=== PATIENT | male | born 1975 | race African-American/Black ===

== ENCOUNTER 2020-12-16 18:08 | Observation (INO) ==
[2020-12-16 18:23] VITALS: BMI 35.4
--- NOTE | 2020-12-16 19:02 | DR.DIZZY ---
HPI Time seen Time Seen by Provider: 12/16/20 19:01 PCP Primary Care Physician: DESTINY WHITNEY HPI Comment HPI Comment: PATIENT WITH A HISTORY OF TYPE 2 DIABETES FOR 1 YEAR, COMPLAINS OF ELEVATED GLUCOSE 500 TODAY ASSOCIATED WITH DIZZINESS, POLYURIA AND POLYDIPSIA. DENIES DYSPNEA, CHEST PAIN, NAUSEA, EMESIS. PATIENT IS UNAWARE OF THE METFORMIN DOSE HE TAKES. DENIES NAUSEA, VOMITING OR DIARRHEA. Complaint Chief Complaint Doctor Comments: ELEVATED GLUCOSE, DIZZINESS Chief Complaint:: PT REPORT GLUCOSE AT HOME > 500'S AND FEELING DIZZY AND WEAK ",BR Self Treatment fo Chief Complaint: PT WENT TO [facility] ON 12/11/20 AND GLUCOSE WAS 500'S STAFF GOT GLUCOSE DOWN TO 300'S PT HAS AN APPT WITH PCP NEXT WEEK,,BR COVID-19 Coronavirus risk:travel/contact w/high risk person: No Has patient experienced Coronavirus symptoms: No Source History Provided: Patient Mode of Arrival Mode of Arrival: Ambulatory Timing Onset of Chief Complaint: 12/10/20 Came on: Gradually Onset of Symptoms Start Date: 12/15/20 Duration Duration: Constant Location of Weakness Weakness Location: Generalized Context Onset: With light exertion History of: DM Stroke Symptoms: None Associated signs and symptoms Associated Signs and Symptoms: Other (DIZZINESS) PMH PMH Past Medical History: Yes Past Medical History: Diabetes Past Surgical History: No Family History History of Family Medical Conditions: Yes Family Medical History Comment: DIALYSIS, Social History Does patient currently use any type of tobacco product: No Have you used tobacco products in the last 12 months: No Type of Tobacco Use: None Does any household member use tobacco: No Alcohol Use: None Do you use any recreational Drugs:: No Lives With: Family Lives Where: Home Travel Risk Coronavirus risk:travel/contact w/high risk person: No Has patient experienced Coronavirus symptoms: No Infectious screening In the last 2 months have you had wt loss of >10#?: NO Have you had fever, night sweats or hemotysis?: No Have you traveled outside the country in the last 6 months?: No Isolation: Standard ROS Review of Systems Constitutional: No Symptoms Reported Eyes: No Symptoms Reported ENTM: No Symptoms Reported Respiratoy: No Symptoms Reported Cardiovascular: No Symptoms Reported Gastrointestinal/Abdominal: No Symptoms Reported Genitourinary: No Symptoms Reported Neurological: Weakness and Dizziness Musculoskeletal: No Symptoms Reported Integumentary: No Symptoms Reported Hematologic/Lymphatic: No Symptoms Reported Endocrine: Increased Thirst and Increased Urine Psychiatric: No Symptoms Reported All Other Systems: Reviewed and Negative PE Vital Signs Vitals: Temperature 97.3 F Pulse Rate 103 Respiratory Rate 20 Blood Pressure 165/56 O2 Sat by Pulse Oximetry 95 General Limitations: No Limitations General Appearance: Alert and In No Apparent Distress Head Head Exam: Normal Inspection and Atraumatic Eyes Eye exam: Normal Appearance, PERRL and EOMI Pupils: Regular, Round: Bilateral Sclera/Conjunctival: Normal Inspection: Bilateral Anterior Chamber: Normal Inspection: Bilateral ENT ENT Exam: Normal Exam, Normal Oropharynx and Normal External Ear Exam Neck Neck Exam: Normal Inspection, Full ROM and Trachea Midline Chest Chest Inspection: Normal Inspection Respiratory Respiratory Exam: Normal Lung Sounds Bilat Respiratory Exam: Bilateral: Clear to Auscultation Cardiovascular Cardiovascular Exam: Regular Rate and Normal Rhythm Abdominal Exam Abdominal Exam: Normal Inspection and Normal Bowel Sounds Extremeties Extremities Exam: Normal Inspection and Full ROM Back Back Exam: Normal Inspection and Full ROM Neurologic Neurological Exam: Alert and CN II-XII Intact Patient Oriented To: Person Cranial Nerve Exam: EOM Function (II, III, IV, ): Normal MDM Differential Diagnosis Differential Diagnosis: Dehydration Differential Diagnosis Comment: HYPERGLYCEMIA. DKA COURSE Treatment Treatment: IV BOLUS, NORMAL 1LITER WIDE OPEN X 2, INSULIN REGULAR 8 UNITS IV, REPEAT SERIAL BLOOD GLUCOSE 360 AT 0015 ROR Labs Reviewed Laboratory Results Reviewed?: Yes Result Diagrams: 12/16/20 19:30 12/16/20 21:14 Laboratory: WBC 13.4 X10^3/uL (3.6-10.0) H 12/16/20 19:30 RBC 5.17 X10^6/uL (4.7-6.0) 12/16/20 19:30 Hgb 13.6 g/dL (13.5-18.0) 12/16/20 19:30 Hct 41.5 % (42.0-54.0) L 12/16/20 19:30 MCV 80.2 fL (80.0-100.0) 12/16/20 19:30 MCH 26.3 pg (27.0-34.0) L 12/16/20 19:30 MCHC 32.8 g/dL (33.0-35.0) L 12/16/20 19:30 RDW 17.6 % (11.6-16.5) H 12/16/20 19:30 Plt Count 303 X10^3/uL (150.0-450.0) 12/16/20 19:30 MPV 8.9 fL (7.4-11.0) 12/16/20 19:30 Neut % (Auto) 64.0 % (42.0-75.0) 12/16/20 19:30 Lymph % (Auto) 24.6 % (21.0-51.0) 12/16/20 19:30 [place] % (Auto) 8.9 % (0.0-13.0) 12/16/20 19:30 Eos % (Auto) 0.6 % (0.9-2.9) L 12/16/20 19:30 Baso % (Auto) 1.9 % (0.2-1.0) H 12/16/20 19:30 Neut # (Auto) 8.6 x10^3/uL (2.2-4.8) H 12/16/20 19:30 Lymph # (Auto) 3.3 X10^3/uL (1.3-2.9) H 12/16/20 19:30 [place] # (Auto) 1.2 x10^3/uL (0.3-0.8) H 12/16/20 19:30 Eos # (Auto) 0.1 x10^3/uL (0.0-0.2) 12/16/20 19:30 Baso # (Auto) 0.3 X10^3/uL (0.0-0.1) H 12/16/20 19:30 Absolute Nucleated RBC 0.0 /100WBC 12/16/20 19:30 Sample Site Rr 12/16/20 19:17 ABG pH 7.370 (7.35-7.45) 12/16/20:17 ABG pCO2 45.0 mmHg (35.0-45.0) 12/16/20:17 ABG pO2 71.0 mmHg (80.0-100.0) L 12/16/20:17 ABG HCO3 26.0 mmol/L (22-26) 12/16/20 19: ABG O2 Saturation 94.0 % (90-100) 12/16/20 19:17 ABG Base Excess 0.4 mmol/L (-2.0-2.0) 12/16/20 19:17 Jose Eduardo Test Pos 12/16/20 19:17 A-a Gradient 22.0 mmHg 12/16/20 19:17 FiO2 21.0 12/16/20 19:17 Blood Gas Comments Julio well sw 12/16/20 19:17 Sodium 131 mmol/L (136-145) L 12/16/20 19:30 Corrected Sodium 143 mmol/L (136-145) 12/16/20 19:30 Potassium 4.8 mmol/L (3.5-5.1) 12/16/20 19:30 Chloride 96 mmol/L (98-107) L 12/16/20 19:30 Carbon Dioxide 26.3 mmol/L (21-32) 12/16/20 19:30 BUN 25 mg/dL (7-18) H 12/16/20 19:30 Creatinine 1.63 mg/dL (0.70-1.30) H 12/16/20 19:30 Est GFR (MDRD) Af Amer 59 (>60) 12/16/20 19:30 Est GFR (MDRD) Non-Af 49 (>60) L 12/16/20 19:30 Glucose 461 mg/dL (65-99) H 12/16/20 21:14 POC Glucose (mg/dL) 360 mg/dL (65-99) H 12/17/20 00:10 Calcium 9.7 mg/dL (8.5-10.1) 12/16/20 19:30 Corrected Calcium TNP 12/16/20 19:30 Magnesium 2.3 mg/dL (1.7-2.9) 12/16/20 19:30 Total Bilirubin 0.50 mg/dL (0.2-1.0) 12/16/20 19:30 AST 13 Units/L (15-37) L 12/16/20 19:30 ALT 54 Units/L (12-78) 12/16/20 19:30 Alkaline Phosphatase 156 Units/L (46-116) H 12/16/20 19:30 Total Protein 9.3 g/dL (6.4-8.2) H 12/16/20 19:30 Albumin 3.7 g/dL (3.4-5.0) 12/16/20 19:30 Globulin 5.6 g/dL (2.5-4.5) H 12/16/20 19:30 Albumin/Globulin Ratio 0.7 Ratio (1.1-2.1) L 12/16/20 19:30 Specimen Type Random urine 12/16/20 20:13 Urine Color Yellow (YELLOW) 12/16/20 20:13 Urine Appearance Clear (CLEAR) 12/16/20 20:13 Urine pH 5.0 (5.0 - 8.0) 12/16/20 20:13 Ur Specific [place] 1.015 (1.000-1.030) 12/16/20 20:13 Urine Protein Negative (NEGATIVE) 12/16/20 20:13 Urine Glucose (UA) 4+ (NEGATIVE) 12/16/20 20:13 Urine Ketones Negative (NEGATIVE) 12/16/20 20:13 Urine Occult Blood Negative (NEGATIVE) 12/16/20 20:13 Urine Nitrite Negative (NEGATIVE) 12/16/20 20:13 Urine Bilirubin Negative (NEGATIVE) 12/16/20 20:13 Urine Urobilinogen Normal (NORMAL) 12/16/20 20:13 Ur Leukocyte Esterase Negative (NEGATIVE) 12/16/20 20:13 Acetone, Semi-Quant Negative (NEGATIVE) 12/16/20 19:30 EKG Rate: 90 [place]: Normal Rhythm: NSR (EARLY REPOLARIZATION) and ST Opioid Opioid Risk Tool Age (Mack box if 16-45): Yes History of Preadolescent Sexual Abuse: No Total: 1 Total Score Risk Category: Low Risk Copyright: Fred DE LA ROSA predicting aberrant behaviors Diagnosis Discharge Problem: Acute hyperglycemia Instructions Instructions: Hyperglycemia Forms: Precautions for COVID19 Patient Portal Social Distancing
[2020-12-16] MEDS ORDERED: NS 1000 ML 1,000 ML IV ONE ×2 (19:17→20:02)
[2020-12-16] MEDS ORDERED: NS 1000 ML 1,000 ML ONE ×2 (19:29→20:09)
[2020-12-16 19:46] LABS: BASOPHILS # (AUTO) 0.3 X10^3/uL (0.0-0.1); BASOPHILS % (AUTO) 1.9 % (0.2-1.0); EOSINOPHILS # (AUTO) 0.1 x10^3/uL (0.0-0.2); EOSINOPHILS % (AUTO) 0.6 % (0.9-2.9); HEMATOCRIT 41.5 % (42.0-54.0); HEMOGLOBIN 13.6 g/dL (13.5-18.0); LYMPHOCYTES # (AUTO) 3.3 X10^3/uL (1.3-2.9); LYMPHOCYTES % (AUTO) 24.6 % (21.0-51.0); MEAN CORPUSCULAR HEMOGLOBIN 26.3 pg (27.0-34.0); MEAN CORPUSCULAR HGB CONC 32.8 g/dL (33.0-35.0); MEAN CORPUSCULAR VOLUME 80.2 fL (80.0-100.0); MEAN PLATELET VOLUME 8.9 fL (7.4-11.0); MONOCYTES # (AUTO) 1.2 x10^3/uL (0.3-0.8); MONOCYTES % (AUTO) 8.9 % (0.0-13.0); NEUTROPHILS # (AUTO) 8.6 x10^3/uL (2.2-4.8); PLATELET COUNT 303 X10^3/uL (150.0-450.0); RED BLOOD COUNT 5.17 X10^6/uL (4.7-6.0); RED CELL DISTRIBUTION WIDTH 17.6 % (11.6-16.5); WHITE BLOOD COUNT 13.4 X10^3/uL (3.6-10.0)
[2020-12-16 19:48] LABS: ABG BASE EXCESS 0.4 mmol/L (-2.0-2.0)
[2020-12-16 19:49] LABS: ABG ALLEN TEST POS
[2020-12-16 19:55] LABS: SERUM ACETONE NEGATIVE (NEGATIVE)
[2020-12-16 19:57] LABS: ALANINE AMINOTRANSFERASE 54 Units/L (12-78); ALBUMIN 3.7 g/dL (3.4-5.0); ALKALINE PHOSPHATASE 156 Units/L (46-116); ASPARTATE AMINO TRANSFERASE 13 Units/L (15-37); BLOOD UREA NITROGEN 25 mg/dL (7-18); CALCIUM 9.7 mg/dL (8.5-10.1); CARBON DIOXIDE 26.3 mmol/L (21-32); CHLORIDE 96 mmol/L (98-107); CREATININE 1.63 mg/dL (0.70-1.30); MAGNESIUM 2.3 mg/dL (1.7-2.9); SODIUM 131 mmol/L (136-145); TOTAL PROTEIN 9.3 g/dL (6.4-8.2); eGFR NON BLACK RACES 49 (>60)
[2020-12-16 20:02] LABS: COR NA(FOR HYPERGLY) 143 mmol/L (136-145)
[2020-12-16] MEDS ORDERED: HumuLIN R IV STA (20:02)
[2020-12-16] MEDS ORDERED: HumuLIN R ONE (20:10)
[2020-12-16 20:19] LABS: BILIRUBIN,URINE NEGATIVE (NEGATIVE); BLOOD/HEMOGLOBIN,URINE NEGATIVE (NEGATIVE); GLUCOSE, URINE 4+ (NEGATIVE); KETONES,URINE NEGATIVE (NEGATIVE); LEUKOCYTE ESTERASE ,URINE NEGATIVE (NEGATIVE); NITRITES,URINE NEGATIVE (NEGATIVE); PROTEIN,URINE NEGATIVE (NEGATIVE); UROBILINOGEN,URINE NORMAL (NORMAL)
[2020-12-16 20:26] LABS: APPEARANCE,URINE CLEAR (CLEAR); COLOR,URINE YELLOW (YELLOW)
[2020-12-17] MEDS ORDERED: TYLENOL 325 MG TAB PO PRN (00:53)
[2020-12-17] MEDS ORDERED: ZOFRAN INJ 4 MG VIAL IVP PRN (00:53)
[2020-12-17] MEDS ORDERED: NS 1000 ML 1,000 ML IV SCH (01:00)
[2020-12-17] MEDS ORDERED: HumuLIN R SUBCUT PRN (07:40)
[2020-12-17] MEDS ORDERED: INVOKANA PO SCH (09:00)
[2020-12-17] MEDS ORDERED: GLUCOPHAGE XR 24-HR PO SCH (09:00)
[2020-12-17] MEDS ORDERED: ACTOS PO SCH (09:00)
[2020-12-17 10:29] LABS: BASOPHILS # (AUTO) 0.1 X10^3/uL (0.0-0.1); BASOPHILS % (AUTO) 0.5 % (0.2-1.0); EOSINOPHILS # (AUTO) 0.2 x10^3/uL (0.0-0.2); EOSINOPHILS % (AUTO) 1.6 % (0.9-2.9); HEMATOCRIT 39.8 % (42.0-54.0); HEMOGLOBIN 13.1 g/dL (13.5-18.0); LYMPHOCYTES # (AUTO) 3.9 X10^3/uL (1.3-2.9); LYMPHOCYTES % (AUTO) 31.9 % (21.0-51.0); MEAN CORPUSCULAR HEMOGLOBIN 26.4 pg (27.0-34.0); MEAN PLATELET VOLUME 9.1 fL (7.4-11.0); MONOCYTES % (AUTO) 7.9 % (0.0-13.0); NEUTROPHILS # (AUTO) 7.1 x10^3/uL (2.2-4.8); NEUTROPHILS % (AUTO) 58.1 % (42.0-75.0); PLATELET COUNT 321 X10^3/uL (150.0-450.0); RED BLOOD COUNT 4.97 X10^6/uL (4.7-6.0); RED CELL DISTRIBUTION WIDTH 17.8 % (11.6-16.5); WHITE BLOOD COUNT 12.2 X10^3/uL (3.6-10.0)
[2020-12-17 10:40] LABS: ALANINE AMINOTRANSFERASE 58 Units/L (12-78); ALBUMIN 3.4 g/dL (3.4-5.0); ALKALINE PHOSPHATASE 121 Units/L (46-116); ASPARTATE AMINO TRANSFERASE 25 Units/L (15-37); BLOOD UREA NITROGEN 19 mg/dL (7-18); CALCIUM 9.1 mg/dL (8.5-10.1); CARBON DIOXIDE 26.3 mmol/L (21-32); CHLORIDE 104 mmol/L (98-107); COR NA(FOR HYPERGLY) 144 mmol/L (136-145); CREATININE 1.39 mg/dL (0.70-1.30); SODIUM 139 mmol/L (136-145); TOTAL PROTEIN 8.7 g/dL (6.4-8.2); eGFR NON BLACK RACES 59 (>60)
[2020-12-17 12:03] VITALS: BP 147/81
[2020-12-17] MEDS ORDERED: SNACK - Diabetic Appropriate PO SCH ×2 (20:00)
== END 2020-12-17 15:10 | disposition home or self-care (01) ==
LOC: ICU 18:12 → ER 18:12 → ICU 12-17 02:11
PROVIDERS: ADMIT Obstetrics & Gynecology Obstetrics; ATTEND Internal Medicine
DX: R35.8 Other polyuria; R79.89 Other specified abnormal findings of blood chemistry; I10 Essential (primary) hypertension; R94.4 Abnormal results of kidney function studies; E87.1 Hypo-osmolality and hyponatremia; R63.1 Polydipsia; E11.65 Type 2 diabetes mellitus with hyperglycemia; R42 Dizziness and giddiness

== ENCOUNTER 2020-12-24 12:17 | Observation (INO) ==
[2020-12-24] MEDS ORDERED: NS 1000 ML 1,000 ML IV ONE (12:39)
[2020-12-24 13:12] LABS: BASOPHILS # (AUTO) 0.1 X10^3/uL (0.0-0.1); BASOPHILS % (AUTO) 1.2 % (0.2-1.0); EOSINOPHILS # (AUTO) 0.1 x10^3/uL (0.0-0.2); EOSINOPHILS % (AUTO) 1.4 % (0.9-2.9); HEMATOCRIT 44.1 % (42.0-54.0); HEMOGLOBIN 14.2 g/dL (13.5-18.0); LYMPHOCYTES # (AUTO) 2.7 X10^3/uL (1.3-2.9); LYMPHOCYTES % (AUTO) 28.3 % (21.0-51.0); MEAN CORPUSCULAR HEMOGLOBIN 26.7 pg (27.0-34.0); MEAN CORPUSCULAR HGB CONC 32.2 g/dL (33.0-35.0); MONOCYTES # (AUTO) 0.8 x10^3/uL (0.3-0.8); MONOCYTES % (AUTO) 8.3 % (0.0-13.0); NEUTROPHILS # (AUTO) 5.8 x10^3/uL (2.2-4.8); NEUTROPHILS % (AUTO) 60.8 % (42.0-75.0); PLATELET COUNT 383 X10^3/uL (150.0-450.0); RED BLOOD COUNT 5.31 X10^6/uL (4.7-6.0); RED CELL DISTRIBUTION WIDTH 18.8 % (11.6-16.5); WHITE BLOOD COUNT 9.6 X10^3/uL (3.6-10.0)
[2020-12-24 13:23] LABS: MAGNESIUM 2.2 mg/dL (1.7-2.9)
[2020-12-24 13:30] LABS: ALANINE AMINOTRANSFERASE 71 Units/L (12-78); ALBUMIN 3.8 g/dL (3.4-5.0); ALKALINE PHOSPHATASE 128 Units/L (46-116); ASPARTATE AMINO TRANSFERASE 27 Units/L (15-37); BLOOD UREA NITROGEN 23 mg/dL (7-18); CALCIUM 9.9 mg/dL (8.5-10.1); CARBON DIOXIDE 25.6 mmol/L (21-32); CHLORIDE 100 mmol/L (98-107); CREATININE 1.68 mg/dL (0.70-1.30); SODIUM 135 mmol/L (136-145); TOTAL PROTEIN 9.4 g/dL (6.4-8.2); eGFR NON BLACK RACES 47 (>60)
[2020-12-24 13:31] VITALS: BMI 36.9
[2020-12-24] MEDS: NS 1000 ML 1,000 ML IV SCH (13:34)
[2020-12-24 13:41] LABS: ABG ALLEN TEST POS; ABG BASE EXCESS -5.2 mmol/L (-2.0-2.0); ABG HCO3 20.6 mmol/L (22-26)
[2020-12-24 13:43] LABS: COR NA(FOR HYPERGLY) 147 mmol/L (136-145)
[2020-12-24 13:48] LABS: SERUM ACETONE NEGATIVE (NEGATIVE)
[2020-12-24 13:54] LABS: BILIRUBIN,URINE NEGATIVE (NEGATIVE); BLOOD/HEMOGLOBIN,URINE NEGATIVE (NEGATIVE); GLUCOSE, URINE 4+ (NEGATIVE); KETONES,URINE NEGATIVE (NEGATIVE); LEUKOCYTE ESTERASE ,URINE NEGATIVE (NEGATIVE); NITRITES,URINE NEGATIVE (NEGATIVE); PROTEIN,URINE NEGATIVE (NEGATIVE); UROBILINOGEN,URINE NORMAL (NORMAL)
[2020-12-24 13:56] LABS: APPEARANCE,URINE CLEAR (CLEAR); COLOR,URINE STRAW (YELLOW)
[2020-12-24] MEDS: HumuLIN R SUBCUT PRN ×2 (14:04→16:26)
--- NOTE | 2020-12-24 14:09 | DR.H&P ---
H&P - History & Physical for Day of: H&P Date: 12/24/20 - Chief Complaint Chief Complaint: ELEVATED BLOOD SUGAR, LEG CRAMPS, VERY WEAK AND FATIGUE - History of Present Illness History of Present Illness: PT IS 45BM DIRECT ADMIT WITH HYPERGLYCEMIA, RO DKA. PT REPORTS INCREASED THIRST, INCREASED URINE OUTPT AND ELEVATED BP AROUND 500 AT HOME EVEN ON METFORMIN AND INVOKANA, WHICH WAS INCREASED ONE WEEK AGO. PT HAS PMH OF HTN. PT ADMITTED FOR TREATMENT AND EVALUATION OF ACUTE ILLNESS. - Past Medical History Past Medical History: Diabetes - Past Surgical History Surgical History: No History - Family History Family Medical History: Diabetes Mellitus - Social History Does patient currently use any type of tobacco product: No Have you used tobacco products in the last 12 months: No Type of Tobacco Use: None Does any household member use tobacco: No Alcohol Use: None Drug Use: None Prescription drug monitoring program results: PDMP reviewed and no concerns identified - Medications Home Medications: shrimp Allergy (Verified 12/16/20 18:18) - Review of Systems Constitutional: Weakness, Malaise - Physical Exam Vital Signs: Blood Pressure [Left Arm] 122/80 - Allergies Allergies/Adverse Reactions: Allergies Allergy/AdvReac Type Severity Reaction Status Date / Time shrimp Allergy Verified 12/16/20 18:18
[2020-12-24] MEDS ORDERED: GLUCOPHAGE ONE (17:01)
[2020-12-24] MEDS: GLUCOPHAGE PO SCH (17:08)
--- NOTE | 2020-12-24 17:50 | DR.H&P ---
H&P - History & Physical for Day of: H&P Date: 12/24/20 - Chief Complaint Chief Complaint: WEAKNESS, DEHYDRATION, ELEVATED BLOOD SUGAR - History of Present Illness History of Present Illness: PT IS 45 BM DIRECT ADMIT FROM DR MAYO OFFICE W ITH CO ELEVATED BLOOD SUGAR, WEAKNESS AND DEHYDRATION. PT WAS SEEN IN ER LAST WEEK WITH MEDICATION CHANGES MADE X1 WEEK AGO ALSO WITHOUT IMPROVEMENT IN SUGAR LEVELS. PT STATES HE HAS BEEN WEAK AND DIZZY, UNINTENTIONAL WEIGHT LOSS, AND MUSCLE CRAMPS. PT ADMITTED FOR TREATMENT OF ACUTE ILLNESS. - Past Medical History Past Medical History: Diabetes, Hypertension - Past Surgical History Surgical History: No History - Family History Family Medical History: Diabetes Mellitus - Social History Does patient currently use any type of tobacco product: No Have you used tobacco products in the last 12 months: No Type of Tobacco Use: None Does any household member use tobacco: No Alcohol Use: None Drug Use: None - Medications Home Medications: shrimp Allergy (Verified 12/16/20 18:18) - Review of Systems Constitutional: Weakness Eyes: No Symptoms Reported ENT: No Symptoms Reported Respiratory: No Symptoms Reported Cardiovascular: No Symptoms Reported Gastrointestinal: Nausea, Vomiting, Diarrhea Genitourinary: Frequency Musculoskeletal: No Symptoms Reported Skin: No Symptoms Reported Neurological: Weakness - Physical Exam Vital Signs: Temperature 97.9 F Pulse Rate [Right Radial] 77 Respiratory Rate 20 Blood Pressure [Left Arm] 150/83 O2 Sat by Pulse Oximetry 98 Oriented: Normal Eyes: Normal Ear: Normal Nose: Normal Throat: Normal Respiratory: RLL Diminished, LLL Diminished Cardiovascular: Normal : Normal Auscultation: Bowel Sounds: Normal Palpation: Normal Tenderness: Normal Skin: Decreased [place]urg[place] Musculoskeletal: Normal Psychiatric: Anxiety Affect: Anxious Speech Pattern: Clear, Appropriate - Assessment/Plan (1) Hyperglycemia Status: Acute Plan: ADMIT, RO DKA. SERUM AND URINE ACETONE ON ADMISSION. IV BOLUS 1L, THEN 100CC HR. STRICT I&OS, BS CONTROL SSI COVERAGE. BP CONTROL, VERIFY HOME MEDICATION (2) Hyponatremia Status: Acute (3) Dehydration with hyponatremia Status: Acute (4) Uncontrolled diabetes mellitus Qualifiers: Diabetes mellitus type: type 2 Glycemic state: with hyperglycemia Qualified Code(s): E11.65 - Type 2 diabetes mellitus with hyperglycemia Status: Acute - Allergies Allergies/Adverse Reactions: Allergies Allergy/AdvReac Type Severity Reaction Status Date / Time shrimp Allergy Verified 12/16/20 18:18
[2020-12-24] MEDS ORDERED: SNACK - Diabetic Appropriate PO SCH (20:00)
[2020-12-25] MEDS: NS 1000 ML 1,000 ML IV SCH (04:05)
[2020-12-25] MEDS ORDERED: GLUCOPHAGE ONE (04:41)
[2020-12-25 05:02] LABS: BASOPHILS # (AUTO) 0.1 X10^3/uL (0.0-0.1); BASOPHILS % (AUTO) 0.8 % (0.2-1.0); EOSINOPHILS # (AUTO) 0.2 x10^3/uL (0.0-0.2); EOSINOPHILS % (AUTO) 2.1 % (0.9-2.9); HEMATOCRIT 39.3 % (42.0-54.0); HEMOGLOBIN 12.8 g/dL (13.5-18.0); LYMPHOCYTES # (AUTO) 3.6 X10^3/uL (1.3-2.9); LYMPHOCYTES % (AUTO) 40.8 % (21.0-51.0); MEAN CORPUSCULAR HEMOGLOBIN 26.4 pg (27.0-34.0); MEAN CORPUSCULAR HGB CONC 32.5 g/dL (33.0-35.0); MEAN CORPUSCULAR VOLUME 81.1 fL (80.0-100.0); MEAN PLATELET VOLUME 8.9 fL (7.4-11.0); MONOCYTES # (AUTO) 0.9 x10^3/uL (0.3-0.8); MONOCYTES % (AUTO) 10.8 % (0.0-13.0); NEUTROPHILS % (AUTO) 45.5 % (42.0-75.0); PLATELET COUNT 312 X10^3/uL (150.0-450.0); RED BLOOD COUNT 4.84 X10^6/uL (4.7-6.0); RED CELL DISTRIBUTION WIDTH 18.7 % (11.6-16.5); WHITE BLOOD COUNT 8.8 X10^3/uL (3.6-10.0)
[2020-12-25 05:20] LABS: ALANINE AMINOTRANSFERASE 66 Units/L (12-78); ALBUMIN 3.2 g/dL (3.4-5.0); ALKALINE PHOSPHATASE 86 Units/L (46-116); ASPARTATE AMINO TRANSFERASE 34 Units/L (15-37); BLOOD UREA NITROGEN 18 mg/dL (7-18); CALCIUM 8.7 mg/dL (8.5-10.1); CARBON DIOXIDE 23.6 mmol/L (21-32); CHLORIDE 108 mmol/L (98-107); COR CA(FOR HYPOALB) 9.3 mg/dL (8.5-10.1); COR NA(FOR HYPERGLY) 143 mmol/L (136-145); CREATININE 1.08 mg/dL (0.70-1.30); SODIUM 142 mmol/L (136-145); TOTAL PROTEIN 7.9 g/dL (6.4-8.2); eGFR NON BLACK RACES > 60 (>60)
[2020-12-25] MEDS: GLUCOPHAGE PO SCH (06:13)
[2020-12-25] MEDS: HumuLIN R SUBCUT PRN (11:51)
[2020-12-25 12:11] VITALS: BP 169/88
== END 2020-12-25 14:25 | disposition home or self-care (01) ==
LOC: MED/SURG
PROVIDERS: ADMIT Internal Medicine; ATTEND Internal Medicine
DX: E86.0 Dehydration; R53.1 Weakness; E87.1 Hypo-osmolality and hyponatremia; E11.65 Type 2 diabetes mellitus with hyperglycemia; I10 Essential (primary) hypertension; R63.4 Abnormal weight loss